=== PATIENT | female | born 1935 | race Caucasian/White ===

== ENCOUNTER 2018-10-04 22:40 | Emergency (ER) | payer OTHER ==
[~2018-10-04] VITALS: Ht 152.4 cm; Wt 52.2 kg
[2018-10-04] MEDS ORDERED: ACCUNEB SO1.25 MG/1 INH (22:50)
[2018-10-04] MEDS ORDERED: VENTOLIN HFA INH8 GM INH (22:50)
[2018-10-04] MEDS ORDERED: SYNTHROID112 MC1 PO (22:50)
[2018-10-04] MEDS ORDERED: PRAVACHOL20 MG PO (22:51)
[2018-10-04] MEDS ORDERED: SYMBICORT160 MCG/4. INH (22:52)
[2018-10-04] MEDS ORDERED: NORVASC5 MG PO (22:53)
[2018-10-04] MEDS ORDERED: CELEXA 10 MG TA10 MG (22:53)
[2018-10-04] MEDS ORDERED: LOPRESSOR50 PO (22:53)
[2018-10-04] MEDS ORDERED: FOSAMAX 70 MG T70 MG PO (22:54)
[2018-10-05] MEDS ORDERED: ZPAK PO (00:18)
[2018-10-05] MEDS ORDERED: PREDNISONE 20 M20 MG PO (00:18)
[2018-10-05 00:57] VITALS: BP 161/84
== END 2018-10-05 00:58 | disposition home or self-care (01) ==
LOC: ER 22:40
DX: J44.1 Chronic obstructive pulmonary disease with (acute) exacerbation (principal); Z85.43 Personal history of malignant neoplasm of ovary; Z85.118 Personal history of other malignant neoplasm of bronchus and lung; Z88.8 Allergy status to other drugs, medicaments and biological substances; Z87.891 Personal history of nicotine dependence